=== PATIENT | female | born 1995 | race African-American/Black ===

== ENCOUNTER 2016-08-11 20:37 | Emergency (ER) | payer OTHER ==
[~2016-08-11] VITALS: Ht 165.1 cm; Wt 73.0 kg
[~2016-08-11 20:37] MED LIST: METR-1 PO
[2016-08-11 20:38] VITALS: BP 141/77; PULSE 93; RESP 15; TEMP 98.2; O2SAT 98
[2016-08-11 22:35] LABS: BACTERIA, URINE OCC /hpf; BLOOD, URINE MOD (NEG); COMMENT (UR) CULTURE INDICATED; CULTURE IF INDICATED CULTURE INDICATED; GLUCOSE,URINE NEG (NEG); KETONE, URINE NEG (NEG); MUCUS URINE FEW /lpf (OCC); NITRITE,URINE NEG (NEG); PH, URINE 6.5 (5.0-8.5); SQUAMOUS EPITHELIAL CELL URINE 2 /hpf (0-5); URINE COLOR YELLOW (YELLW/STRAW)
[2016-08-11] MEDS ORDERED: MACR100C2 PO (23:55)
--- NOTE | 2016-08-11 23:58 | PD ---
HPI Chief Complaint: Complaint Time Seen by Provider: 23:50 Travel History International Travel<30 days: No Contact w/Intl Traveler<30days: No Traveled to known affect area: No History of Present Illness HPI 21-year-old female presents for evaluation of dysuria. Symptoms started 2 days ago. She reports a burning sensation when she urinates. She endorses increased urinary frequency. Denies abdominal pain, flank pain, fevers or chills, nausea or vomiting. She reports that she is currently on oral as well as topical Flagyl for treatment of bacterial vaginosis, diagnosed by her OB/ [employer]. She has no other complaints at this time. [facility] Past Medical History Diminished Hearing: No Gastrointestinal Disorders: Yes (cholecystitis) Genitourinary: Yes (GB, yeast infection ) Immunizations Current: Yes Tetanus Vaccination: Unknown Influenza Vaccination: No ?: Unknown LMP: 07/26/16 : 1 Para: 0 Miscarriage: 1 : 0 Past Surgical History Surgical History: No Previous Surgery Social History Alcohol Use: Yes (occ) Tobacco Use: No Substance Use: No Allergies-Medications (Allergen,Severity, Reaction): Coded Allergies: Iopidine (Verified Allergy, Severe, 02/12/16) throat swelling, hives Contrast Media (Verified Allergy, Unknown, HIVES, 02/12/16) Shellfish (Verified Allergy, Unknown, HIVES, 02/12/16) Keflex (Verified Adverse Reaction, Intermediate, itchy,vomiting and diarrhea, 02/12/16) Reported Meds & Prescriptions Reported Meds & Active Scripts Active Review of Systems Except as stated in HPI: all other systems reviewed are Neg Physical Exam Narrative GENERAL: Well-developed well-nourished female in no acute distress SKIN: Warm and dry. HEAD: Atraumatic. Normocephalic. EYES: Pupils equal and round. No scleral icterus. No injection or drainage. CARDIOVASCULAR: Regular rate and rhythm. No murmur appreciated. RESPIRATORY: No accessory muscle use. Clear to auscultation. Breath sounds equal bilaterally. GASTROINTESTINAL: Abdomen soft, non-tender, nondistended. Hepatic and splenic margins not palpable. MUSCULOSKELETAL: No obvious deformities. No CVA tenderness Data Data Last Documented VS Vital Signs Date Time Temp Pulse Resp B/P Pulse Ox O2 Delivery O2 Flow Rate FiO2 08/11/16 20:38 98.2 93 15 141/77 98 Room Air Orders Urinalysis - C+S If Indicated (08/11/16 21:39) Ed Urine Pregnancytest Poc (08/11/16 21:39) Urine Culture (08/11/16 21:40) Labs Laboratory Tests Test 08/11/16 21:40 Urine Color YELLOW Urine Turbidity HAZY Urine pH 6.5 Urine Specific [place] 1.025 Urine Protein TRACE mg/dL Urine Glucose (UA) NEG mg/dL Urine Ketones NEG mg/dL Urine Occult Blood MOD Urine Nitrite NEG Urine Bilirubin NEG Urine Urobilinogen 2.0 MG/DL Urine Leukocyte Esterase LARGE Urine RBC /hpf Urine WBC 149 /hpf Urine WBC Clumps OCC Urine Squamous Epithelial 2 /hpf Cells Urine Bacteria OCC /hpf Urine Mucus FEW /lpf Microscopic Urinalysis Comment CULTURE INDICATED MDM Medical Decision Making Medical Screen Exam Complete: Yes Emergency Medical Condition: Yes Medical Record Reviewed: Yes Interpretation(s) Negative urine test Urinalysis moderate blood, large leukocytes, white blood cell clumps, occasional bacteria, culture pending Differential Diagnosis Cystitis, urethritis, pyelonephritis, vaginitis, vaginosis, urethritis, cervicitis Narrative Course 21-year-old female with dysuria for 2 days. Examination, history and urinalysis results are consistent with cystitis. The patient will be treated with Macrobid pending urine culture results. Diagnosis Primary Impression: Urinary tract infection Qualified Code: N30.01 - Acute cystitis with hematuria Additional Instructions: Take the antibiotic as prescribed. Stay well hydrated and well-nourished. Follow-up with primary care physician as needed. Return for any emergent medical conditions. Med/Other Pt SpecificInfo: Prescription(s) given Scripts Nitrofurantoin Monohydrate Macrocrystals (Macrobid)100 Mg Nao131 Mg PO BID 7 Days Ref 0 Prov:Marlo Avendaño MD 08/11/16 Disposition: 01 DISCHARGE HOME Condition: Stable Indra Orta Aug 11, 2016 23:58
== END 2016-08-12 00:07 | disposition home or self-care (01) ==
LOC: NEPB 20:37
DX: N30.01 Acute cystitis with hematuria (principal); B96.1 Klebsiella pneumoniae [K. pneumoniae] as the cause of diseases classified elsewhere; Z87.19 Personal history of other diseases of the digestive system; Z87.42 Personal history of other diseases of the female genital tract
CPT/HCPCS: 81001; 84703; 87077; 87086; 87186; 99283

== ENCOUNTER 2016-09-11 20:37 | Emergency (ER) | payer OTHER ==
[~2016-09-11 20:37] MED LIST changes: +MACR100C2 PO; -METR-1 PO
[2016-09-11 20:39] VITALS: BP 129/70; PULSE 81; RESP 16; TEMP 98.3; O2SAT 100
== END 2016-09-11 21:00 | disposition left against medical advice (07) ==
LOC: NED 20:37
DX: R68.89 Other general symptoms and signs (principal)
CPT/HCPCS: 99281

== ENCOUNTER 2016-10-02 07:52 | Emergency (ER) | payer OTHER ==
[~2016-10-02] VITALS: Ht 165.1 cm; Wt 73.5 kg
[2016-10-02 07:54] VITALS: BP 132/76; PULSE 86; RESP 15; TEMP 97.9; O2SAT 98
--- NOTE | 2016-10-02 08:34 | PD ---
HPI Chief Complaint: Cold / Flu Symptoms Time Seen by Provider: 08:33 Travel History International Travel<30 days: No Contact w/Intl Traveler<30days: No Traveled to known affect area: No History of Present Illness HPI 21-year-old female, approximately 9 weeks , presents to the emergency Department with complaint of cough, sore throat, nasal congestion and cough 4 days. Reports fever on only with MAXIMUM TEMPERATURE of 102.0. Reports hoarse voice. Sore throat is worse with coughing. Cough is worse at night. Denies lump in throat, unusual drooling, difficulty swallowing. Denies chest tightness, chest pain, shortness of breath. Denies abdominal pain, nausea , vomiting. Denies abdominal cramping, vaginal discharge, vaginal bleeding. Has been taking Tylenol with fever reduction. Has not taken any medicine other medications return if she was to alleviate her symptoms. Allergies to contrast media, Keflex, shellfish, iodine. Denies significant past medical history. No other modifying factors or associated signs and symptoms. PFSH Past Medical History Medical History: Denies Significant Hx Diminished Hearing: No Gastrointestinal Disorders: Yes (cholecystitis) Genitourinary: Yes (GB, yeast infection ) Immunizations Current: Yes ?: LMP: 07/21/2016 : 1 Para: 0 Miscarriage: 1 : 0 Social History Alcohol Use: Yes (occ) Tobacco Use: No Substance Use: No Allergies-Medications (Allergen,Severity, Reaction): Coded Allergies: Iopidine (Verified Allergy, Severe, 02/12/16) throat swelling, hives Contrast Media (Verified Allergy, Unknown, HIVES, 02/12/16) Shellfish (Verified Allergy, Unknown, HIVES, 02/12/16) Keflex (Verified Adverse Reaction, Intermediate, itchy,vomiting and diarrhea, 02/12/16) Reported Meds & Prescriptions Reported Meds & Active Scripts Active Amoxicillin 500 Mg Cap 500 Mg PO BID 10 Days Review of Systems Except as stated in HPI: all other systems reviewed are Neg Physical Exam Narrative GENERAL: Well-nourished, well-developed female patient, in no acute distress SKIN: Warm and dry. No rash. HEAD: Atraumatic. Normocephalic. EYES: Pupils equal and round at 3 mm with brisk reaction. No scleral icterus. No injection or drainage. PERRLA. ENT: Mucosa pink and moist. No erythema or exudates. No uvular edema. No uvular , palatal, or tonsillar deviation. Airway patent. Nasal congestion noted. EARS: Bilateral pinnae and external canals appear within normal limits. Bilateral tympanic membranes without erythema, dullness or perforation. NECK: Trachea midline. No lymphadenopathy. CARDIOVASCULAR: Regular rate and rhythm. No murmur appreciated. RESPIRATORY: No accessory muscle use. Clear to auscultation. Breath sounds equal bilaterally. GASTROINTESTINAL: Abdomen soft, non-tender, nondistended. Hepatic and splenic margins not palpable. Bowel sounds are active 4 quadrants. MUSCULOSKELETAL: No obvious deformities. No clubbing. No cyanosis. No edema. NEUROLOGICAL: Awake and alert. Oriented 3. No obvious cranial nerve deficits. Motor grossly within normal limits. Normal speech. Moves all extremities. 5/5 strength to all extremities. PSYCHIATRIC: Appropriate mood and affect; insight and judgment normal. Data Data Last Documented VS Vital Signs Date Time Temp Pulse Resp B/P Pulse Ox O2 Delivery O2 Flow Rate FiO2 10/02/16 07:54 97.9 86 15 132/76 98 Orders Influenzae A/B Antigen (10/02/16 08:34) Group A Rapid Strep Screen (10/02/16 08:38) Strep Culture (Group A) (10/02/16 08:35) MDM Medical Decision Making Medical Screen Exam Complete: Yes Emergency Medical Condition: Yes Medical Record Reviewed: Yes Differential Diagnosis Upper respiratory infection, influenza, strep pharyngitis, sinusitis, viral illness Narrative Course 21-year-old female with cold/flu symptoms 4 days. Approximately 9 weeks . Afebrile and nontoxic appearing in the ER. Reports MAXIMUM TEMPERATURE of 102.0 on . Has been without fever since. Influenza and rapid strep ordered. 0930: Influenza and rapid strep negative. Prescribed antibiotics for possible upper respiratory infection. Amoxicillin prescribed for home. Patient is medically cleared and stable for discharge. Discussed reasons to return to the emergency department. Instructed patient to follow up with primary care provider. Patient agrees with treatment plan. The patients vital signs are stable and the patient is stable for outpatient follow-up and treatment. Patient discharged home, stable and in no acute distress. Diagnosis Primary Impression: Upper respiratory infection Qualified Code: J06.9 - Upper respiratory tract infection, unspecified type Referrals: Primary Care Physician Patient Instructions: General Instructions, Upper Respiratory Infection (ED) Departure Forms: Tests/Procedures, Work Release Enter return to work date: Oct 04, 2016 Additional Instructions: Antibiotics as prescribed and complete full course Ibuprofen or Tylenol as instructed and as needed for fever/pain [id number] cough and cold medications as directed and as needed for symptom management Get plenty of sleep/rest Drink plenty of fluids to prevent dehydration; popsicles and Gatorade Use an air humidifier/turn off ceiling fans Follow-up with primary care provider Return immediately to the emergency department with worsening of symptoms Med/Other Pt SpecificInfo: Prescription(s) given Scripts Amoxicillin 500 Mg Osy624 Mg PO BID 10 Days Ref 0 Prov:Rina Fernandes 10/02/16 Disposition: 01 DISCHARGE HOME Condition: Stable Rina Fernandes Oct 02, 2016 08:34
[2016-10-02] MEDS ORDERED: AMOX500C PO (09:30)
== END 2016-10-02 09:53 | disposition home or self-care (01) ==
LOC: NEPB 07:52
DX: J06.9 Acute upper respiratory infection, unspecified (principal)
CPT/HCPCS: 87081; 87804; 87880; 99283

== ENCOUNTER 2016-10-14 09:50 | Emergency (ER) | payer OTHER ==
[~2016-10-14] VITALS: Ht 165.1 cm; Wt 74.0 kg
[~2016-10-14 09:50] MED LIST changes: +AMOX500C PO; -MACR100C2 PO
[2016-10-14 09:55] VITALS: BP 115/60; PULSE 83; RESP 22; TEMP 98; O2SAT 100
[2016-10-14] MEDS ORDERED: SODIUM CHLOR 0.9% 1000 ML INJ 1,000 ML IV SCH (09:57)
[2016-10-14] MEDS ORDERED: MORPHINE SULFATE 4 MG/ML INJ IV PUSH ONE (10:00)
[2016-10-14] MEDS ORDERED: ONDANSETRON HCL 4 MG/2 ML VIAL IVP ONE (10:00)
[2016-10-14] MEDS ORDERED: PANTOPRAZOLE SODIUM 40 MG VIAL IVP ONE (10:00)
[2016-10-14 10:02] VITALS: O2SAT 98
--- NOTE | 2016-10-14 10:06 | PD ---
HPI Chief Complaint: Abdominal Pain Time Seen by Provider: 09:57 Travel History International Travel<30 days: No Contact w/Intl Traveler<30days: No Traveled to known affect area: No History of Present Illness HPI 21-year-old female complains of severe abdominal pain. Patient status post ectopic surgery 8 days ago at [facility]. Patient states that she has been doing well until 2 days ago. Patient states that the pain started 2 days ago. Patient states the pain is severe sharp pain and cramping pain most severe around the right low quadrant abdomen with radiation to the back. Patient denies any nausea vomiting diarrhea. Patient denies any fever chills. Patient has been constipated for the past 11 days. Patient denies any dysuria or frequency. Patient states that she started having vaginal bleeding 2 days ago and ended yesterday. Patient denies any vaginal bleeding today. Patient denies any headache. Patient denies any chest pain or shortness of breath. On a scale of 1-10 the pain is a 10. PFSH Past Medical History Medical History: Denies Significant Hx Diminished Hearing: No Gastrointestinal Disorders: Yes (cholecystitis) Genitourinary: Yes (GB, yeast infection ) Immunizations Current: Yes Tetanus Vaccination: Unknown Influenza Vaccination: No ?: Not : 1 Para: 0 Miscarriage: 1 : 0 Ectopic : Yes Social History Alcohol Use: No Tobacco Use: No Substance Use: No Allergies-Medications (Allergen,Severity, Reaction): Coded Allergies: Iopidine (Verified Allergy, Severe, 10/14/16) throat swelling, hives Contrast Media (Verified Allergy, Unknown, HIVES, 10/14/16) Shellfish (Verified Allergy, Unknown, HIVES, 10/14/16) Keflex (Verified Adverse Reaction, Intermediate, itchy,vomiting and diarrhea, 10/14/16) Reported Meds & Prescriptions Reported Meds & Active Scripts Active Review of Systems General / Constitutional: No: Fever Eyes: No: Visual changes HENT: No: Headaches Cardiovascular: No: Chest Pain or Discomfort Respiratory: No: Shortness of Breath Gastrointestinal: Positive: Abdominal Pain Genitourinary: No: Dysuria Musculoskeletal: No: Pain Skin: No Rash Neurologic: No: Weakness Psychiatric: No: Depression Endocrine: No: Polydipsia Hematologic/Lymphatic: No: Easy Bruising Physical Exam Narrative GENERAL: Well-nourished, well-developed patient. SKIN: Warm and dry. HEAD: Normocephalic. EYES: No scleral icterus. No injection or drainage. NECK: Supple, trachea midline. No JVD or lymphadenopathy. CARDIOVASCULAR: Regular rate and rhythm without murmurs, gallops, or rubs. RESPIRATORY: Breath sounds equal bilaterally. No accessory muscle use. GASTROINTESTINAL: Abdomen mildly distended. Active bowel sounds. Patient has moderate diffuse tenderness over the abdomen with some guarding. No rebound tenderness. MUSCULOSKELETAL: No cyanosis, or edema. BACK: Nontender without obvious deformity. No CVA tenderness. Neurologic exam: Patient is awake and alert oriented 3. No obvious focal neurological deficit. Data Data Last Documented VS Vital Signs Date Time Temp Pulse Resp B/P Pulse Ox O2 Delivery O2 Flow Rate FiO2 10/14/16 11:47 75 18 106/53 100 Room Air 10/14/16 09:55 98.0 Orders Beta Hcg (Quant/Titer) (10/14/16 09:57) Complete Blood Count With Diff (10/14/16 09:57) Comprehensive Metabolic Panel (10/14/16 09:57) Lipase (10/14/16 09:57) Prothrombin Time / Inr (Pt) (10/14/16 09:57) Act Partial Throm Time (Ptt) (10/14/16 09:57) Urinalysis - C+S If Indicated (10/14/16 09:57) Iv Access Insert/Monitor (10/14/16 09:57) Ecg Monitoring (10/14/16 09:57) Oximetry (10/14/16 09:57) Morphine Inj (Morphine Inj) (10/14/16 10:00) Ondansetron Inj (Zofran Inj) (10/14/16 10:00) Pantoprazole Inj (Protonix Inj) (10/14/16 10:00) Sodium Chlor 0.9% 1000 Ml Inj (Ns 1000 M (10/14/16 09:57) Type And Screen (10/14/16 09:59) Ct Abd/Pel W/O Iv Contrast (10/14/16 10:01) Fleets Enema (Adult) (Fleets Enema (Adul (10/14/16 12:15) Labs Laboratory Tests Test 10/14/16 10/14/16 10:10 12:40 White Blood Count 14.3 TH/MM3 Red Blood Count 4.81 MIL/MM3 Hemoglobin 12.1 GM/DL Hematocrit 38.5 % Mean Corpuscular Volume 79.9 FL Mean Corpuscular Hemoglobin 25.2 PG Mean Corpuscular Hemoglobin 31.5 % Concent Red Cell Distribution Width 13.8 % Platelet Count 304 TH/MM3 Mean Platelet Volume 8.0 FL Neutrophils (%) (Auto) 83.1 % Lymphocytes (%) (Auto) 8.4 % Monocytes (%) (Auto) 5.9 % Eosinophils (%) (Auto) 2.3 % Basophils (%) (Auto) 0.3 % Neutrophils # (Auto) 11.9 TH/MM3 Lymphocytes # (Auto) 1.2 TH/MM3 Monocytes # (Auto) 0.8 TH/MM3 Eosinophils # (Auto) 0.3 TH/MM3 Basophils # (Auto) 0.0 TH/MM3 CBC Comment DIFF FINAL Differential Comment Prothrombin Time 11.6 SEC Prothromb Time International 1.0 RATIO Ratio Activated Partial 25.9 SEC Thromboplast Time Sodium Level 142 MEQ/L Potassium Level 4.1 MEQ/L Chloride Level 107 MEQ/L Carbon Dioxide Level 27.4 MEQ/L Anion Gap 8 MEQ/L Blood Urea Nitrogen 7 MG/DL Creatinine 0.84 MG/DL Estimat Glomerular Filtration 102 ML/MIN Rate Random Glucose 100 MG/DL Calcium Level 9.0 MG/DL Total Bilirubin 0.7 MG/DL Aspartate Amino Transf 24 U/L (AST/SGOT) Alanine Aminotransferase 41 U/L (ALT/SGPT) Alkaline Phosphatase 55 U/L Total Protein 8.0 GM/DL Albumin 4.0 GM/DL Lipase 60 U/L Human Chorionic Gonadotropin, 149 MIU/ML Quant Blood Type O POSITIVE Antibody Screen NEGATIVE Blood Bank Comment Urine Color LIGHT-YELLOW Urine Turbidity HAZY Urine pH 7.5 Urine Specific [place] 1.005 Urine Protein NEG mg/dL Urine Glucose (UA) NEG mg/dL Urine Ketones NEG mg/dL Urine Occult Blood SMALL Urine Nitrite NEG Urine Bilirubin NEG Urine Urobilinogen LESS THAN 2.0 MG/DL Urine Leukocyte Esterase LARGE Urine RBC 2 /hpf Urine WBC 6 /hpf Urine Squamous Epithelial 5 /hpf Cells Urine Bacteria RARE /hpf Microscopic Urinalysis Comment CULT NOT INDICATED MDM Medical Decision Making Medical Screen Exam Complete: Yes Emergency Medical Condition: Yes Interpretation(s) Last Impressions Abdomen/Pelvis CT 10/14/16 1001 Signed Impressions: Service Date/Time: September 11:14 - CONCLUSION: 1. Prominent bladder with a large bolus of stool in rectum. 2. Dilatation of the collecting system on the left. Nithin Villegas MD FACR 1330 PM. CBC WBC 14.3. MCV 79.9. 83 neutrophil. CMP within normal limit. Beta hCG 149. UA with 6 WBC. Differential Diagnosis Differential diagnosis including intra-abdominal hemorrhage, gastritis, PUD, pancreatitis, cholecystitis, colitis, UTI, pyelonephritis, nephrolithiasis. Narrative Course 21-year-old female with abdominal pain. Status post ectopic surgery 8 days ago. Normal saline solution 1 25 cc an hour. Morphine 2 mg IV. Zofran 4 mg IV. Fleet enema given to the patient. Patient had a large bowel movement and with complete resolution of the pain. Diagnosis Primary Impression: Abdominal colic Additional Impression: Fecal impaction Patient Instructions: General Instructions Additional Instructions: Advised [id number] stool softener and Fleet enema as needed. Follow-up with personal physician. Return if worse. Disposition: 01 DISCHARGE HOME Condition: Stable Billy Riley MD Oct 14, 2016 10:06
[2016-10-14 10:24] LABS: AUTOMATED NEUTROPHIL # 11.9 TH/MM3 (1.8-7.7); BASOPHIL % 0.3 % (0.0-2.0); EOSINOPHIL # 0.3 TH/MM3 (0-0.4); EOSINOPHIL % 2.3 % (0.0-4.0); HEMATOCRIT 38.5 % (35.0-46.0); HEMO FLAGS DIFF FINAL; LYMPH % 8.4 % (9.0-44.0); LYMPHOCYTE # 1.2 TH/MM3 (1.0-4.8); MEAN CELL VOLUME 79.9 FL (80.0-100.0); MEAN CORPUSCULAR HEMOGLOBIN 25.2 PG (27.0-34.0); MEAN CORPUSCULAR HGB CONC 31.5 % (32.0-36.0); MONO % 5.9 % (0.0-8.0); NEUT % 83.1 % (16.0-70.0); PLATELET COUNT 304 TH/MM3 (150-450); RED BLOOD COUNT 4.81 MIL/MM3 (4.00-5.30); RED CELL DISTRIBUTION WIDTH 13.8 % (11.6-17.2); WHITE BLOOD COUNT 14.3 TH/MM3 (4.0-11.0)
[2016-10-14 10:34] LABS: APTT (PATIENT) 25.9 SEC (24.3-30.1); PROTHROMBIN TIME - PATIENT 11.6 SEC (9.8-11.6)
[2016-10-14 10:44] LABS: ALT (GPT) 41 U/L (10-53); ANION GAP 8 MEQ/L (5-15); AST (GOT) 24 U/L (15-37); BICARBONATE 27.4 MEQ/L (21.0-32.0); BLOOD UREA NITROGEN 7 MG/DL (7-18); CHLORIDE 107 MEQ/L (98-107); GLOMERULAR FILTRATION RATE 102 ML/MIN (>89); POTASSIUM 4.1 MEQ/L (3.5-5.1); SODIUM (NA) 142 MEQ/L (136-145)
[2016-10-14 10:48] LABS: ALKALINE PHOSPHATASE 55 U/L (45-117); BETA HCG QUANT 149 MIU/ML (0-5); TOTAL BILIRUBIN ADULT 0.7 MG/DL (0.2-1.0)
[2016-10-14 11:47] VITALS: BP 106/53; PULSE 75; RESP 18; O2SAT 100
[2016-10-14] MEDS ORDERED: SOD PHOSPHATE/SOD BIPHOSPHATE (ADULT) ENEMA 133ML PR ONE (12:15)
--- NOTE | 2016-10-14 12:25 | RADRPT ---
EXAM DATE/TIME: 10/14/2016 11:14 [facility] COMPARISON: No previous studies available for comparison. INDICATIONS: Abdominal pain and cramping, vaginal bleeding; recent ectopic . ORAL CONTRAST: No oral contrast ingested. RADIATION DOSE: 11.56 CTDIvol (mGy) MEDICAL HISTORY: Cholecystitis. SURGICAL HISTORY: Ectopic surgery. ENCOUNTER: Initial ACUITY: 2 days PAIN SCALE: 10/10 LOCATION: Right lower quadrant TECHNIQUE: Volumetric scanning of the abdomen and pelvis was performed. Using automated exposure control and ad justment of the mA and/or kV according to patient size, radiation dose was kept as low as reasonably achievable to obtain optimal diagnostic quality images. FINDINGS: Lung bases are clear. There is no pericardial effusion. Liver, pancreas and adrenals are unremarkab le. There is mild prominence to the collecting system of the left kidney. There is a large distended bladder. La rge amount of stool is present in the rectum. There is no free fluid or free air. There is no evidence for he matoma or abscess. CONCLUSION: 1. Prominent bladder with a large bolus of stool in rectum. 2. Dilatation of the collecting system on the left. Nithin Villegas MD FACR on October 14, 2016 at 11:26 Board Certified Radiologist. This report was verified electronically.
[2016-10-14 13:03] LABS: BACTERIA, URINE RARE /hpf; BLOOD, URINE SMALL (NEG); GLUCOSE,URINE NEG (NEG); KETONE, URINE NEG (NEG); NITRITE,URINE NEG (NEG); PH, URINE 7.5 (5.0-8.5); SQUAMOUS EPITHELIAL CELL URINE 5 /hpf (0-5); URINE COLOR LIGHT-YELLOW (YELLW/STRAW)
[2016-10-14 13:08] LABS: COMMENT (UR) CULT NOT INDICATED; CULTURE IF INDICATED CULT NOT INDICATED
[2016-10-14 13:46] VITALS: BP 102/56; PULSE 78; RESP 18; O2SAT 100
== END 2016-10-14 14:19 | disposition home or self-care (01) ==
LOC: NEPA 09:50
DX: K56.41 Fecal impaction (principal); R10.84 Generalized abdominal pain
CPT/HCPCS: 74176; 80053; 81001; 83690; 84702; 85025; 85610; 85730; 86850; 86900; 86901; 96361; 96374; 96375; 99284; C9113; J2270; J2405; J7030

== ENCOUNTER 2017-02-06 16:29 | Emergency (ER) | payer OTHER ==
[2017-02-06 16:32] VITALS: BP 123/75; PULSE 74; RESP 16; TEMP 98.8; O2SAT 100
[2017-02-06 18:54] LABS: BACTERIA, URINE MANY /hpf; BLOOD, URINE MOD (NEG); COMMENT (UR) CULTURE INDICATED; CULTURE IF INDICATED CULTURE INDICATED; GLUCOSE,URINE NEG (NEG); KETONE, URINE NEG (NEG); MUCUS URINE FEW /lpf (OCC); NITRITE,URINE NEG (NEG); SQUAMOUS EPITHELIAL CELL URINE 20 /hpf (0-5); TRANSITIONAL EPI CELLS, URINE 2 /hpf; URINE COLOR YELLOW (YELLW/STRAW)
== END 2017-02-06 20:51 | disposition left against medical advice (07) ==
LOC: NED 16:29
DX: R39.198 Other difficulties with micturition (principal)
CPT/HCPCS: 81001; 87077; 87086; 87186; 99281

== ENCOUNTER 2017-02-14 21:02 | Emergency (ER) | payer OTHER ==
[~2017-02-14] VITALS: Ht 165.1 cm; Wt 75.0 kg
[2017-02-14 21:05] VITALS: BP 126/77; PULSE 65; RESP 16; TEMP 98.3; O2SAT 100
[2017-02-14] MEDS ORDERED: DIFL100T PO (23:02)
[2017-02-14] MEDS ORDERED: NITR100C4 PO (23:02)
[2017-02-14] MEDS ORDERED: PROPARACAINE HCL 0.5% OPHT SOLN 15 ML BTL RIGHT EYE ONE (23:15)
--- NOTE | 2017-02-14 23:23 | PD ---
HPI Chief Complaint: Eye Problems/Injury Time Seen by Provider: 23:22 Travel History International Travel<30 days: No Contact w/Intl Traveler<30days: No Traveled to known affect area: No History of Present Illness HPI Patient comes in complaining of burning sensation in her left eye after getting a chemical in it while at work today. 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 Patient reports that she irrigated her left eye for 10- 15 minutes prior to coming to the emergency department that helped some, but continues to have burning sensation in her left eye. Denies any radiation of the pain. Denies any change in vision. Denies anything making it worse. PFSH Past Medical History Diminished Hearing: No Gastrointestinal Disorders: Yes (cholecystitis) Genitourinary: Yes (GB, yeast infection ) Immunizations Current: Yes ?: Not LMP: 02/14/17 : 1 Para: 0 Miscarriage: 1 : 0 Ectopic : Yes Social History Alcohol Use: Yes (occ) Tobacco Use: No Substance Use: No Allergies-Medications (Allergen,Severity, Reaction): Coded Allergies: Iopidine (Verified Allergy, Severe, 02/14/17) throat swelling, hives Contrast Media (Verified Allergy, Unknown, HIVES, 02/14/17) Shellfish (Verified Allergy, Unknown, HIVES, 02/14/17) Keflex (Verified Adverse Reaction, Intermediate, itchy,vomiting and diarrhea, 02/14/17) Reported Meds & Prescriptions Reported Meds & Active Scripts Active Erythromycin Opth Oint 5 Mg/Gm Oint 1 Applic LEFT EYE QID Reported Nitrofurantoin Monohydrate Macrocrystals (Nitrofurantoin Monoh/Nitrofur Macro) 100 Mg Cap 100 Mg PO BID Diflucan (Fluconazole) 100 Mg Tab 100 Mg PO EVERY OTHER DAY Review of Systems Except as stated in HPI: all other systems reviewed are Neg Physical Exam Narrative GENERAL: Well-developed, well nourished, in no acute distress, and non-ill appearing. SKIN: Focused skin assessment warm and dry. HEAD: Atraumatic. Normocephalic. EYES: Pupils equal and round. EOMI. No scleral icterus. No injection or drainage. No foreign body noted. ENT: No nasal bleeding or discharge. Mucous membranes pink and moist. NECK: Trachea midline. Supple. No nuclear rigidity. RESPIRATORY: No accessory muscle use. No respiratory distress. MUSCULOSKELETAL: No obvious deformities. No clubbing. No cyanosis. No edema. Full range of motion. NEUROLOGICAL: Awake and alert. No obvious cranial nerve deficits. Motor grossly within normal limits. Normal speech. PSYCHIATRIC: Appropriate mood and affect; insight and judgment normal. Data Data Last Documented VS Vital Signs Date Time Temp Pulse Resp B/P Pulse Ox O2 Delivery O2 Flow Rate FiO2 02/14/17 21:05 98.3 65 16 126/77 100 Orders Proparacaine 0.5% Opth Soln (Alcaine 0.5 (02/14/17 23:15) Eye Irrigation (02/14/17 23:08) MDM Medical Decision Making Medical Screen Exam Complete: Yes Emergency Medical Condition: Yes Differential Diagnosis Foreign body, conjunctivitis, iritis, preseptal cellulitis, other Narrative Course Patient reassessed status post having Franki's lens and irrigated with a liter of fluid. Patient reports symptoms have resolved and she no longer has a burning sensation in her eye. Patient with chemical conjunctivitis. No evidence of foreign body by history or exam. No history to suspect corneal ulceration as well. There is no evidence of iritis, glaucoma, preseptal cellulitis, periorbital or orbital cellulitis. Will place patient on ophthalmologic antibiotics. This was discussed with the patient. The patient was instructed to follow up with their Workmen's Comp. provider and/or comparator operator in 1-2 days or return here if worsened, increased pain, decreased vision, swelling around the eye or as needed. The patient agreed with plan. Patient in no obvious distress upon re-evaluation. Patient was asked if they wanted to speak to my attending, which the patient did not wish to do at this time. Any questions/concerns in reference to patient diagnosis/condition discussed and clarified prior to patient's discharge. Reinforced sheer importance of close follow up with patient's Workmen's Comp. provider and/or comparator operator. Instructed patient to return to ED immediately, if symptoms return/worsen. Pt showed understanding of above instructions. Further instructions and recommendations were detailed in discharge paperwork. Pt ambulated without difficulty out of ED at discharge. Procedures Procedure Narrative Verbal consent was obtained. Affected eye was anesthetized using proparacaine. Fluorescein staining and Wood lamp exam performed with no uptake seen. Negative Shaan sign. No hyphema, hyperemia, or rust ring. Eyelid was everted with no foreign body noted. No tenderness bilateral temporal arteries to palpation. Patient tolerated procedure well. Diagnosis Primary Impression: Chemical conjunctivitis of left eye Patient Instructions: Chemical Eye Trinidad (ED), Conjunctivitis (ED), General Instructions Additional Instructions: Follow-up with your Workmen's Comp. provider and/or comparator operator in 1-2 days for reevaluation. Take all medication as prescribed. Return to the emergency department if symptoms get worse. Med/Other Pt SpecificInfo: Prescription(s) given Scripts Erythromycin Opth Oint 5 Mg/Gm Oint1 Applic LEFT EYE QID #1 TUBE Ref 0 Prov:Ray Caceres MD 02/15/17 Disposition: 01 DISCHARGE HOME Condition: Stable Demetris Romo Feb 14, 2017 23:23
[2017-02-15] MEDS ORDERED: ERYTOIN10 LEFT EYE (00:19)
== END 2017-02-15 00:57 | disposition home or self-care (01) ==
LOC: NEPD 21:02
DX: T65.891A Toxic effect of other specified substances, accidental (unintentional), initial encounter (principal); H10.212 Acute toxic conjunctivitis, left eye; Z87.19 Personal history of other diseases of the digestive system; Z87.448 Personal history of other diseases of urinary system; X58.XXXA Exposure to other specified factors, initial encounter; Y99.0 Civilian activity done for income or pay
CPT/HCPCS: 99283

== ENCOUNTER 2017-09-26 14:12 | Emergency (ER) | payer SELFPAY ==
[~2017-09-26] VITALS: Ht 165.1 cm; Wt 66.8 kg
[~2017-09-26 14:12] MED LIST changes: -AMOX500C PO; +DIFL100T PO; +ERYTOIN10 LEFT EYE; +NITR100C4 PO
[2017-09-26 14:32] VITALS: BP 121/75; PULSE 74; RESP 12; TEMP 99.5; O2SAT 100
[2017-09-26 14:48] VITALS: BP 107/62; PULSE 83; RESP 18; O2SAT 100
[2017-09-26] MEDS ORDERED: predniSONE 20 MG TAB PO ONE (15:15)
[2017-09-26] MEDS ORDERED: diphenhydrAMINE HCL 50 MG CAP PO ONE (15:15)
[2017-09-26] MEDS ORDERED: KETOROLAC TROMETHAMINE 60 MG/2 ML (IM) VIAL IM ONE (15:15)
[2017-09-26] MEDS ORDERED: DAND1SHA3 TOPICAL (16:17)
--- NOTE | 2017-09-26 16:17 | PD ---
HPI Chief Complaint: Allergic/Adverse Reaction Time Seen by Provider: 14:47 Travel History International Travel<30 days: No Contact w/Intl Traveler<30days: No Traveled to known affect area: No History of Present Illness HPI 22-year-old female presents to the emergency room for evaluation of itchy rash to her back, face, legs, and below her breasts for the past 2 days. Patient states symptoms started shortly after she ate some shrimp 2 days ago, despite being allergic to shellfish. Symptoms were most severe yesterday but have improved slightly. She took Benadryl which did relieve the symptoms mildly. She denies sore throat, chest pain, shortness of breath, or difficulty breathing. Patient also reports frontal headache for the past 1 month. She went to another hospital for it and was given medication for pain which did not significantly improve her symptoms. She has never had any imaging of her head. States symptoms came on gradually. They occur almost daily. Moderate in severity. Worse with light. She has not been taking anything over the counter. She denies any chronic medical conditions or daily medications. PFSH Past Medical History Diminished Hearing: No Gastrointestinal Disorders: Yes (cholecystitis) Genitourinary: Yes (GB, yeast infection ) Immunizations Current: Yes Tetanus Vaccination: > 5 Years Influenza Vaccination: No ?: Unknown LMP: 09/02/2017 : 1 Para: 0 Miscarriage: 1 : 0 Ectopic : Yes Social History Alcohol Use: Yes (occ) Tobacco Use: No Substance Use: No Allergies-Medications (Allergen,Severity, Reaction): Coded Allergies: apraclonidine (Unverified Allergy, Severe, 09/26/17) throat swelling, hives diatrizoate meglumine (Unverified Allergy, Unknown, HIVES, 09/26/17) gadobenic acid (Unverified Allergy, Unknown, HIVES, 09/26/17) gadodiamide (Unverified Allergy, Unknown, HIVES, 09/26/17) gadoteridol (Unverified Allergy, Unknown, HIVES, 09/26/17) iodixanol (Unverified Allergy, Unknown, HIVES, 09/26/17) iohexol (Unverified Allergy, Unknown, HIVES, 09/26/17) shellfish derived (Unverified Allergy, Unknown, HIVES, 09/26/17) cephalexin (Unverified Adverse Reaction, Intermediate, itchy,vomiting and diarrhea, 09/26/17) Reported Meds & Prescriptions Reported Meds & Active Scripts Active Augmentin (Amoxicillin-Clavulanate) 875-125 Mg Tab 1 Tab PO BID 10 Days Selenium Sulfide Topical 2.5% (Selenium Sulfide) 2.5 % Lotn 1 Applic TOPICAL 2XWEEK Erythromycin Opth Oint 5 Mg/Gm Oint 1 Applic LEFT EYE QID Reported Nitrofurantoin Monohydrate Macrocrystals (Nitrofurantoin Monoh/Nitrofur Macro) 100 Mg Cap 100 Mg PO BID Diflucan (Fluconazole) 100 Mg Tab 100 Mg PO EVERY OTHER DAY Review of Systems Except as stated in HPI: all other systems reviewed are Neg Physical Exam Narrative GENERAL: Well-nourished, well-developed female no acute distress. Afebrile. Ambulatory. SKIN: Focused skin assessment warm/dry. Multiple 1-4 mm circular, hypopigmented lesions under the left breast and on the back. No urticaria. HEAD: Normocephalic. EYES: No scleral icterus. No injection or drainage. ENT: Mucosa pink and moist. No erythema or exudates. No uvular edema. No uvular , palatal, or tonsillar deviation. Airway patent. Nasal turbinates appear normal without nasal blood, purulent drainage or septal hematoma. NECK: Supple, trachea midline. No JVD or lymphadenopathy. CARDIOVASCULAR: Regular rate and rhythm without murmurs, gallops, or rubs. RESPIRATORY: Breath sounds equal bilaterally. No accessory muscle use. NEUROLOGICAL: Awake and alert. Cranial nerves II through XII intact. Motor and sensory grossly within normal limits. Five out of 5 muscle strength in all muscle groups. Normal speech. No pronator drift in upper extremities. Data Data Last Documented VS Vital Signs Date Time Temp Pulse Resp B/P (MAP) Pulse Ox O2 Delivery O2 Flow Rate FiO2 09/26/17 14:48 83 18 107/62 (77) 100 Room Air 09/26/17 14:[address] Brain W/O Iv Contrast(Rout) (09/26/17 ) Diphenhydramine (Benadryl) (09/26/17 15:15) Ketorolac Inj (Toradol Inj) (09/26/17 15:15) Prednisone (Deltasone) (09/26/17 15:15) Ed Discharge Order (09/26/17 16:38) [facility] Medical Decision Making Medical Screen Exam Complete: Yes Emergency Medical Condition: Yes Medical Record Reviewed: Yes Differential Diagnosis Urticaria, allergic reaction, tinea versicolor, tinea corporis, migraine, tumor Narrative Course 22-year-old female presents to the emergency room for evaluation of itchy rash to her face, back, and under her left breast. She also complains of headache that has been going on for about 1 month. Patient states rash started after eating shrimp 2 days ago. Improved with Benadryl. Physical exam is unremarkable. Patient does have tinea versicolor in the areas that she claims are itchy. There is no evidence of urticaria. Lung sounds clear and equal bilaterally. Airway patent. She is given 20 mg prednisone in the emergency room in the event that it is an allergic reaction but I have low suspicion. She has no focal neurological deficits. Communicating in a bright room, sitting up without difficulty. CT of the brain is negative, shows chronic sinusitis for which patient will be treated with Augmentin. She was given Toradol and Benadryl for headache and itchiness. Discharged with prescription for selenium sulfide. Told to follow-up with her primary care physician or return for worsening symptoms. She understands and agrees to plan. Diagnosis Primary Impression: Tinea versicolor Additional Impressions: Allergic reaction Qualified Codes: T78.40XA - Allergy, unspecified, initial encounter Sinus headache Referrals: Primary Care Physician Additional Instructions: Rest and drink plenty of fluids. Selenium sulfide as directed. Follow-up with a primary care physician. Return to the emergency room for worsening symptoms. Med/Other Pt SpecificInfo: Prescription(s) given Scripts Amoxicillin-Clavulanate (Augmentin) 875-125 Mg Tab 1 TAB PO BID for Infection for 10 Days, #20 TAB 0 Refills Prov: Billy Riley MD 09/26/17 Selenium Sulfide Topical 2.5% (Selenium Sulfide Topical 2.5%) 2.5 % Lotn 1 APPLIC TOPICAL 2XWEEK, #1 BOTTLE 0 Refills Prov: Billy Riley MD 09/26/17 Disposition: 01 DISCHARGE HOME Condition: Stable Amy Beyer Sep 26, 2017 16:17
[2017-09-26] MEDS ORDERED: SELE2.5%T TOPICAL (16:18)
--- NOTE | 2017-09-26 16:28 | RADRPT ---
EXAM DATE/TIME: 09/26/2017 16:11 [facility] COMPARISON: No previous studies available for comparison. INDICATIONS : Cephalgia for two weeks. RADIATION DOSE: 49.11 CTDIvol (mGy) MEDICAL HISTORY : None SURGICAL HISTORY : None. ENCOUNTER: Initial ACUITY: 2 weeks PAIN SCALE: 8/10 LOCATION: Bilateral head TECHNIQUE: Multiple contiguous axial images were obtained of the head. Using automated exposure control and adj ustment of the mA and/or kV according to patient size, radiation dose was kept as low as reasonably a chievable to obtain optimal diagnostic quality images. DICOM format image data is available electro nically for review and comparison. FINDINGS: CEREBRUM: The ventricles are normal for age. No evidence of midline shift, mass lesion, hemorrhage or acute in farction. No extra-axial fluid collections are seen. POSTERIOR FOSSA: The cerebellum and brainstem are intact. The 4th ventricle is midline. The cerebellopontine angle i s unremarkable. EXTRACRANIAL: There is mild right maxillary mucoperiosteal thickening. SKULL: The calvaria is intact. No evidence of skull fracture. CONCLUSION: 1. No acute intracranial abnormality is identified. 2. Mild right maxillary sinus mucoperiosteal thickening. Tad Roberson MD on September 26, 2017 at 16:25 Board Certified Radiologist. This report was verified electronically.
[2017-09-26] MEDS ORDERED: AUGM875T3 PO (16:38)
[2017-09-26 17:00] VITALS: BP 110/62
== END 2017-09-26 17:01 | disposition home or self-care (01) ==
LOC: NEPD 14:12
DX: B36.0 Pityriasis versicolor (principal); T78.40XA Allergy, unspecified, initial encounter; R51 Headache
CPT/HCPCS: 70450; 96372; 99283; J1885; J7512; Q0163

== ENCOUNTER 2017-10-03 14:05 | Emergency (ER) | payer SELFPAY ==
[~2017-10-03 14:05] MED LIST changes: +AUGM875T3 PO; +SELE2.5%T TOPICAL
[2017-10-03 14:46] VITALS: BP 131/70; PULSE 70; RESP 16; TEMP 98.4; O2SAT 100
--- NOTE | 2017-10-03 20:33 | PD ---
HPI Chief Complaint: Abdominal Pain Time Seen by Provider: 14:45 Travel History International Travel<30 days: No Contact w/Intl Traveler<30days: No Traveled to known affect area: No History of Present Illness HPI 22-year-old female presents to the emergency department for evaluation of right lower abdominal pain radiating to her flank. Patient states this started today. She is on her menses but these are not similar to her menstrual cramps. He has not been recently ill. T she has nausea without vomiting. She does have history of ectopic one year ago. She denies any other symptoms at this time. PFSH Past Medical History Medical History: Denies Significant Hx Diminished Hearing: No Gastrointestinal Disorders: Yes (cholecystitis) Genitourinary: Yes (GB, yeast infection ) Immunizations Current: Yes : 1 Para: 0 Miscarriage: 1 : 0 Ectopic : Yes Social History Alcohol Use: Yes (occ) Tobacco Use: No Substance Use: No Allergies-Medications (Allergen,Severity, Reaction): Coded Allergies: apraclonidine (Unverified Allergy, Severe, 09/26/17) throat swelling, hives diatrizoate meglumine (Unverified Allergy, Unknown, HIVES, 09/26/17) gadobenic acid (Unverified Allergy, Unknown, HIVES, 09/26/17) gadodiamide (Unverified Allergy, Unknown, HIVES, 09/26/17) gadoteridol (Unverified Allergy, Unknown, HIVES, 09/26/17) iodixanol (Unverified Allergy, Unknown, HIVES, 09/26/17) iohexol (Unverified Allergy, Unknown, HIVES, 09/26/17) shellfish derived (Unverified Allergy, Unknown, HIVES, 09/26/17) cephalexin (Unverified Adverse Reaction, Intermediate, itchy,vomiting and diarrhea, 09/26/17) Reported Meds & Prescriptions Reported Meds & Active Scripts Active Augmentin (Amoxicillin-Clavulanate) 875-125 Mg Tab 1 Tab PO BID 10 Days Selenium Sulfide Topical 2.5% (Selenium Sulfide) 2.5 % Lotn 1 Applic TOPICAL 2XWEEK Erythromycin Opth Oint 5 Mg/Gm Oint 1 Applic LEFT EYE QID Reported Nitrofurantoin Monohydrate Macrocrystals (Nitrofurantoin Monoh/Nitrofur Macro) 100 Mg Cap 100 Mg PO BID Diflucan (Fluconazole) 100 Mg Tab 100 Mg PO EVERY OTHER DAY Review of Systems Except as stated in HPI: all other systems reviewed are Neg Physical Exam Narrative Well-nourished female patient. She appears nontoxic. Head is atraumatic. Pupils are equal and reactive. She has even respirations. She has a regular heart rate. He moves all extremities with no obvious deformities. She speaks clearly to me. Data Data Last Documented VS Vital Signs Date Time Temp Pulse Resp B/P (MAP) Pulse Ox O2 Delivery O2 Flow Rate FiO2 10/03/17 14:46 98.4 70 16 131/70 (90) 100 Orders Orders Beta Hcg (Quant/Titer) (10/03/17 14:49) Complete Blood Count With Diff (10/03/17 14:49) Comprehensive Metabolic Panel (10/03/17 14:49) Lipase (10/03/17 14:49) Urinalysis - C+S If Indicated (10/03/17 14:49) Ed Urine Pregnancytest Poc (10/03/17 14:49) MDM Medical Decision Making Medical Screen Exam Complete: Yes Emergency Medical Condition: Yes Medical Record Reviewed: Yes Differential Diagnosis Menstrual cramps versus colitis versus diverticulitis versus ovarian cyst Narrative Course 22-year-old female presents emergency department for evaluation of lower abdominal pain. Patient appears without distress. Vital signs are stable. Workup is initiated in triage. AMA: The risks of leaving against medical advice without further evaluation treatment were discussed with the patient. These risks include cardiac dysfunction, cardiac dysrhythmia, possible heart attack, possible stroke or . The patient indicated understanding of these risks and appeared to have the capacity to make this decision. Diagnosis Primary Impression: Abdominal pain Disposition: 07 AGAINST MEDICAL ADVICE Condition: Stable CarlsonKathy garrett JUAN Oct 03, 2017 20:33
== END 2017-10-03 20:25 | disposition left against medical advice (07) ==
LOC: NED 14:05
DX: R10.31 Right lower quadrant pain (principal); Z53.21 Procedure and treatment not carried out due to patient leaving prior to being seen by health care provider; Z88.8 Allergy status to other drugs, medicaments and biological substances; Z79.899 Other long term (current) drug therapy
CPT/HCPCS: 99282